=== PATIENT | female | born 1930 ===

== ENCOUNTER 2018-09-22 11:07 | Inpatient (IN) | payer MEDICARE, MEDICAID ==
[2018-09-22 11:10] VITALS: BMI 19.1
--- NOTE | 2018-09-22 12:06 | ED PDOC ---
Arrival/HPI - General Chief Complaint: Altered Mental Status Time Seen by Provider: 09/22/18 11:16 Historian: Retirement - History of Present Illness Narrative History of Present Illness (Text): 09/22/18 12:01 88yo female with pmhx of Dementia, bipolar bib EMS from [facility] for evaluation of AMS. Per NH patient had a mechanical fall on 09/06 and was seen at [facility] s/p and was discharged with negative test. The VT report that patient has been having frequent falls and appear altered since then. Patient in ED is AAO to self. She answers some questions. She denies any focal pain and any other complaint in ED. Past Medical History - Provider Review Nursing Documentation Reviewed: Yes - Infectious Disease Hx of Infectious Diseases: None - Tetanus Immunization Tetanus Immunization: Unknown - Reproductive Menopause: No - Cardiac Hx Cardiac Disorders: Yes Other/Comment: history of AK - Pulmonary Hx Respiratory Disorders: Yes Hx Asthma: Yes Hx Chronic Obstructive Pulmonary Disease (COPD): Yes - Neurological Hx Neurological Disorder: Yes Hx Dementia: Yes Hx Seizures: Yes - HEENT Hx HEENT Disorder: No - Renal Hx Renal Disorder: No - Endocrine/Metabolic Hx Endocrine Disorders: No - Hematological/Oncological Hx Blood Disorders: No - Integumentary Hx Dermatological Disorder: No - Musculoskeletal/Rheumatological Hx Falls: No - Gastrointestinal Hx Gastrointestinal Disorders: No Hx Gastroesophageal Reflux: Yes - Genitourinary/Gynecological Hx Genitourinary Disorders: No - Psychiatric Hx Psychophysiologic Disorder: Yes Hx Anxiety: Yes Hx Bipolar Disorder: Yes Hx Depression: Yes Hx Substance Use: No - Past Surgical History Past Surgical History: Unable to Obtain - Surgical History Hx Tonsillectomy: Yes - Anesthesia Hx Anesthesia: Yes Hx Anesthesia Reactions: No Hx Malignant Hyperthermia: No - Suicidal Assessment Feels Threatened In Home Enviroment: No Family/Social History - Physician Review Nursing Documentation Reviewed: Yes Family/Social History: Unknown Family HX Smoking Status: Never Smoked Hx Alcohol Use: No Hx Substance Use: No Hx Substance Use Treatment: No Allergies/Home Meds Allergies/Adverse Reactions: Allergies No Known Allergies Allergy (Verified 04/22/15 16:35) Home Medications: Home Meds Medication Instructions Recorded Confirmed RX: Atorvastatin [Lipitor] 5 mg PO DAILY 04/22/15 09/22/18 RX: Fluticasone Propionate 1 spray SHELLIE HS 04/22/15 09/22/18 [Flovent Diskus] RX: Fluticasone/Salmeterol 250/50 1 puff INH DAILY 04/22/15 09/22/18 [Advair Diskus 250/50] RX: Loperamide [Imodium] 1 cap PO PRN PRN 04/22/15 09/22/18 RX: Montelukast [Singulair] 1 tab PO DAILY 04/22/15 09/22/18 RX: Pantoprazole [Protonix EC Tab] 1 tab PO DAILY 04/22/15 09/22/18 RX: QUEtiapine [Seroquel] 4 tab PO HS 04/22/15 09/22/18 RX: Roflumilast [Daliresp] 1 tab PO DAILY 04/22/15 09/22/18 RX: LORazepam [Ativan] 0.5 mg PO BID 09/22/18 09/22/18 RX: LORazepam [Ativan] 3 mg PO HS 09/22/18 09/22/18 RX: QUEtiapine [SEROquel] 50 mg PO BID 09/22/18 09/22/18 Review of Systems - Physician Review All systems were reviewed & negative as marked: Yes - Review of Systems Constitutional: Normal Eyes: Normal ENT: Normal Respiratory: Normal Cardiovascular: Normal Gastrointestinal: Normal Genitourinary Female: Normal Musculoskeletal: Normal Skin: Normal Neurological: Other (AMS) Endocrine: Normal Hemo/Lymphatic: Normal Psychiatric: Normal Physical Exam Vital Signs Reviewed: Yes Vital Signs Temp Pulse Resp BP Pulse Ox 09/22/18 11:10 97.7 F 88 20 110/68 99 Temperature: Afebrile Blood Pressure: Normal Pulse: Regular Respiratory Rate: Normal Appearance: Positive for: Well-Appearing, Non-Toxic, Comfortable Pain Distress: None Mental Status: Positive for: Alert and Oriented X 3 - Systems Exam Head: Present: Atraumatic, Normocephalic Pupils: Present: PERRL Extroacular Muscles: Present: EOMI Conjunctiva: Present: Normal Mouth: Present: Moist Mucous Membranes Neck: Present: Normal Range of Motion Respiratory/Chest: Present: Clear to Auscultation, Good Air Exchange. No: Respiratory Distress, Accessory Muscle Use Cardiovascular: Present: Regular Rate and Rhythm, Normal S1, S2. No: Murmurs Abdomen: No: Tenderness, Distention, Peritoneal Signs Back: Present: Normal Inspection Upper Extremity: Present: Normal Inspection. No: Cyanosis, Edema Lower Extremity: Present: Normal Inspection. No: Edema Neurological: Present: GCS=15, CN II-XII Intact, Speech Normal Skin: Present: Warm, Dry, Normal Color. No: Rashes Psychiatric: Present: Alert. No: Oriented x 3 (X 2) Medical Decision Making ED Course and Treatment: 09/22/18 13:58 88yo female bib EMS for AMS and frequent falls. Labs Blood/Urine culture EKG Head CT Chest xray EKG Sinus rhythm with PAC @ 87bpm. LAD Chest - IMPRESSION: No active disease. Head CT IMPRESSION: No acute hemorrhage. Labs nonspecific. elevated CK and LDH noted and pt was hydrated in ED. Pt will however be placed on OBS secondary to the complaint of AMS for further evaluation. Case was DW Dr. Degroot and pt was admitted to his service. He requested Dr. Richards consult. - RAD Interpretation Radiology Orders: 09/22/18 11:19 CHEST PORTABLE [RAD] Stat 09/22/18 11:51 HEAD W/O CONTRAST [CT] Stat Disposition/Present on Arrival - Present on Arrival Any Indicators Present on Arrival: No History of DVT/PE: No History of Uncontrolled Diabetes: No Urinary Catheter: No History of Decub. Ulcer: No History Surgical Site Infection Following: None - Disposition Have Diagnosis and Disposition been Completed?: Yes Diagnosis: Altered mental status Disposition: HOSPITALIZED Disposition Time: 13:50 Patient Plan: Admission Patient Problems: Current Active Problems Problem Status Onset Altered mental status Acute Condition: FAIR
--- NOTE | 2018-09-22 12:15 | RAD ---
Date of service: 09/22/2018 HISTORY: admission COMPARISON: 04/22/2015 FINDINGS: LUNGS: No active pulmonary disease. PLEURA: No significant pleural effusion identified, no pneumothorax apparent. CARDIOVASCULAR: No aortic atherosclerotic calcification present. Normal cardiac size. No pulmonary vascular congestion. OSSEOUS STRUCTURES: There is scoliosis of the lower thoracic spine convex to the right VISUALIZED UPPER ABDOMEN: Normal. OTHER FINDINGS: None. IMPRESSION: No active disease.
[2018-09-22 12:19] LABS: BASO # 0.02 K/mm3 (0.0-2.0); BASO % 0.3 % (0.0-3.0); EOS % 0.7 % (1.5-5.0); GRAN # 3.44 (1.4-6.5); GRAN % 57.1 % (50.0-68.0); HEMOGLOBIN 11.2 g/dL (12.0-16.0); LYMPH # 1.8 (1.2-3.4); LYMPH % 30.1 % (22.0-35.0); MEAN CELL VOLUME 90.2 fl (80.0-105.0); MEAN CORPUSCULAR HEMOGLOBIN 29.8 pg (25.0-35.0); MEAN PLATELET VOLUME 10.4 fl (7.0-11.0); MONO # 0.7 (0.1-0.6); MONO % 11.8 % (1.0-6.0); RBC 3.76 10^6/uL (3.5-6.1); RED CELL DISTRIBUTION WIDTH 13.9 % (11.5-14.5)
[2018-09-22 12:25] LABS: PARTIAL THROMBOPLASTIN TIME 28.9 Seconds (25.1-36.5); PROTHROMBIN TIME 11.5 SECONDS (9.4-12.5)
[2018-09-22 12:27] LABS: ALB/GLOB RATIO 1.1 (1.1-1.8); ALT/SGPT 33 U/L (7-56); AST/SGOT 51 U/L (14-36); BLOOD UREA NITROGEN 21 mg/dL (7-21); CALCIUM 9.4 mg/dL (8.4-10.5); GFR NON-AFRICAN AMERICAN > 60
[2018-09-22 12:29] LABS: PH,URINE 6.5 (4.7-8.0); URINE BILIRUBIN NEGATIVE (NEGATIVE); URINE BLOOD NEGATIVE (NEGATIVE); URINE GLUCOSE (UA) NEGATIVE (NEGATIVE); URINE LEUKOCYTE ESTERASE NEGATIVE Leu/uL (NEGATIVE); URINE PROTEIN NEGATIVE mg/dL (<30 mg/dL); URINE UROBILINOGEN 0.2 E.U./dL (<1 E.U./dL)
[2018-09-22 12:30] LABS: URINE APPEARANCE CLEAR (CLEAR); URINE COLOR LIGHT YELLOW (YELLOW)
[2018-09-22 12:37] LABS: TROPONIN I 0.01 ng/mL
[2018-09-22 12:43] LABS: CK-MB 2.8 ng/mL (0.0-3.6)
--- NOTE | 2018-09-22 13:41 | CT ---
Date of service: 09/22/2018 PROCEDURE: CT HEAD WITHOUT CONTRAST. HISTORY: AMS COMPARISON: None available. TECHNIQUE: Axial computed tomography images were obtained through the head/brain without intravenous contrast. Radiation dose: Total exam DLP = 958.25 mGy-cm. This CT exam was performed using one or more of the following dose reduction techniques: Automated exposure control, adjustment of the mA and/or kV according to patient size, and/or use of iterative reconstruction technique. FINDINGS: HEMORRHAGE: No intracranial hemorrhage. BRAIN: No mass effect or edema. Atrophy. VENTRICLES: Unremarkable. No hydrocephalus. CALVARIUM: Unremarkable. PARANASAL SINUSES: Unremarkable as visualized. No significant inflammatory changes. MASTOID AIR CELLS: Unremarkable as visualized. No inflammatory changes. OTHER FINDINGS: None. IMPRESSION: No acute hemorrhage.
[2018-09-22] MEDS ORDERED: Sodium Chloride 0.9% 1,000 ML IV STA (14:02)
[2018-09-22] MEDS ORDERED: Thiamine 100 mg/ml Inj IM STA (16:06)
--- NOTE | 2018-09-22 17:36 | HP ---
DATE OF EXAM: 09/22/2018 HISTORY OF PRESENT ILLNESS: I know Fabby very well from [facility]. She is in the locked down unit for dementia. She had multiple falls over the past few weeks, I believe that it is seven falls. Thank God, she has not broken anything. She is an 88-year-old white female who has got multiple falls, dementia, bipolar. She went to the [facility] on 09/06/2018 for that fall, discharged with negative tests, another few falls here, and now she is in the [facility]. She has some weight loss. PAST MEDICAL HISTORY: She has a history of an MT, COPD, asthma, dementia, seizures, reflux, bipolar, anxiety. PAST SURGICAL HISTORY: She had a tonsillectomy. FAMILY HISTORY: Unknown family history. SOCIAL HISTORY: Never smoked. No alcohol or drugs. ALLERGIES: NO KNOWN DRUG ALLERGIES. MEDICATIONS: She is on Lipitor, Flovent, also Advair, Imodium, Singulair, Protonix, Seroquel, Daliresp, and Ativan. REVIEW OF SYSTEMS: No acute vision or hearing changes. No sore throat. No chest pain or palpitations. No shortness of breath or cough. No abdominal pain. No nausea, vomiting, constipation, or diarrhea. The skin, what she understands, is okay. She is altered mentally and you got to be specific for her to give you an answer. PHYSICAL EXAMINATION: VITAL SIGNS: She has 97.7 temperature, 88 pulse, 20 respiratory rate, 110/68 blood pressure, 99% O2 sat. GENERAL: She is well appearing, nontoxic, comfortable, alert and oriented x3. HEENT: Head; atraumatic, normocephalic. Extraocular muscles are intact. Pupils are reactive to light and accommodation. Throat is moist. NECK: Supple. HEART: Regular rate. Normal S1, S2. LUNGS: Decreased breath sounds with poor inspiration, but clear to auscultation. No wheeze, no rhonchi, no rales. ABDOMEN: Soft, nontender. Positive bowel sounds. No guarding, no rebound, no CVA tenderness. EXTREMITIES: No edema of the extremities. She could move all four extremities fairly well. NEUROLOGIC: GCS is 15. Cranial nerves II-XII grossly intact. Normal speech. Alert and oriented x1. SKIN: From what I could tell is within normal limits. No breakdown. No rashes or ulcers. LABORATORY DATA: She had multiple tests done here in [facility]. She has an alcohol level of less than 10. The urine is clean. She has sodium 140, potassium 3.7, BUN 21, creatinine 0.7, GFR is greater than 60, sugar is 107. Calcium is 9.4, phosphorus 2.3, magnesium 1.9. Total bili is 0.5, AST is 51, ALT of 33, alkaline phosphatase is 52. Lactate dehydrogenase is 725. Total creatine kinase is 474. Troponin is 0.01. Total protein 7.6, albumin is 4, globulin 2.6. TSH is 0.79. INR is 1. White count is 6, hemoglobin 11.2, hematocrit 32.9, platelets of 296. DIAGNOSTIC DATA: She had a CT scan of the head which showed no acute hemorrhage. Chest x-ray showed no active disease. She is going to need to go to subacute rehab where they will keep her over for three nights and get a subacute rehab. I think she needs that before she goes home. She has fallen seven times and told by [facility]. She is going to need to have physical therapy, neurological evaluation because she has fallen, make sure there is no head trauma, make sure no worsening of her neurological issues. We will put her back on her medications, keep her on IV fluids, get physical therapy to see her, make sure she is eating. She is here for multiple falls. Daryl Degroot DO
--- NOTE | 2018-09-22 17:58 | CON ---
DATE OF CONSULTATION: 09/22/2018 NEUROLOGY CONSULTATION CHIEF COMPLAINT: Change in mental status. HISTORY OF PRESENT ILLNESS: An 88-year-old woman with history of COPD, asthma, bipolar disorder, dementia, and severe cognitive impairment, who came from the detention for mechanical fall, had a mechanical fall on 09/06/2018. Reports that the patient is having frequent falls, deconditioning, having alteration in mental status, A and O x2. She answers some questions, but has very tangential thought processes. Recall after 5 minutes is 0/3. Poor attention span. Slow thought process. Moves all extremities equally. Denies any focal pain. Her labs are unremarkable. Mildly dehydrated, otherwise vital signs are stable. 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 She is deconditioned. PAST MEDICAL HISTORY: As above. SOCIAL HISTORY: No illicit drug use, smoking or EtOH abuse. FAMILY HISTORY: Noncontributory. MEDICATIONS: Reviewed by nurses' reconciliation sheet. REVIEW OF SYSTEMS: A 14-point review of systems is negative except as per the HPI. ALLERGIES: NO KNOWN DRUG ALLERGIES. PHYSICAL EXAMINATION VITAL SIGNS: Temperature of 97.7, pulse rate of 88, blood pressure 121/64, respiratory rate of 18, and oxygen saturation 96% by room air. GENERAL: The patient is sitting up in bed, in no acute distress. HEENT: Atraumatic, normocephalic. PERRLA. Extraocular muscles intact. NECK: Supple. No JVD, no adenopathy noted. LUNGS: Clear to auscultation. No adventitious sounds. HEART: S1, S2. Normal rate and rhythm. No murmurs, rubs, or gallops. ABDOMEN: Soft, nontender, and nondistended. Bowel sounds are present. EXTREMITIES: No clubbing. No cyanosis. Peripheral pulses 2+ felt bilaterally. NEUROLOGIC: The patient is alert and oriented to person, place, month, and year. Recall after 5 minutes is 0/3. Poor attention span. Tangential thought process. Disorganized thinking. Cranial nerves II through XII intact. Speech is hypophonic. No aphasia noted. Motor: Moves all extremities equally. Deconditioned. Cachectic. Slightly increased tone throughout. No pronator drift seen. Sensory Exam: Withdraws to localized noxious stimulus. Light touch, intact. DTRs are 2+ throughout and 1 at both knees and ankles. Coordination and gait is deferred for now. This patient is not quite cooperative. LABORATORY DATA: Sodium is 140, potassium 3.7, chloride 102, carbon dioxide 32, BUN is 21, creatinine 0.7, random glucose of 107. IMPRESSION: Transient confusional state, superimposed underlying cardiac impairment, superimposed underlying bipolar disorder. She is deconditioned and it likely causes her to have mechanical falls as well as she was taking a lot of Ativan at the detention, which could make her drowsy as well. RECOMMENDATION: At this time, I will recommend: 1. Physical Therapy/Occupational Therapy evaluation. 2. B12 injection. 3. Delirium precautions. 4. Psychiatric consult. 5. Continue with current present medical management. Varinder Richards MD
[2018-09-22] MEDS: Sodium Chloride 0.45% 1,000 ML IV SCH (18:01)
[2018-09-22] MEDS: Budesonide 0.5 mg/2 ml Inhal Susp UD IH SCH (19:53)
[2018-09-22] MEDS: Arformoterol 15 mcg/2 ml Inh Sol IH SCH (19:53)
--- NOTE | 2018-09-22 20:28 | CARD ---
APPROVED REPORT Date of service: 09/22/2018 EKG Measurement Heart [id number] <Conclusion> Sinus rhythm with premature atrial complexes Left axis deviation Abnormal ECG
[2018-09-22] MEDS ORDERED: Influenza Vaccine 60 mcg/0.5 mL SYR (4YR UP) IM ONE (22:11)
[2018-09-22] MEDS ORDERED: Pneumococcal 23-Valent Vaccine IM ONE (22:11)
[2018-09-23] MEDS: Arformoterol 15 mcg/2 ml Inh Sol IH SCH ×2 (07:25→20:56)
[2018-09-23] MEDS: Budesonide 0.5 mg/2 ml Inhal Susp UD IH SCH ×2 (07:25→20:56)
[2018-09-23 08:33] LABS: ALB/GLOB RATIO 1.1 (1.1-1.8); ALBUMIN 3.9 g/dL (3.0-4.8); ALT/SGPT 33 U/L (7-56); AST/SGOT 52 U/L (14-36); BLOOD UREA NITROGEN 11 mg/dL (7-21); CALCIUM 8.9 mg/dL (8.4-10.5); GFR NON-AFRICAN AMERICAN > 60
[2018-09-23 08:45] LABS: HEMOGLOBIN 11.2 g/dL (12.0-16.0); MEAN CELL VOLUME 91.4 fl (80.0-105.0); MEAN CORPUSCULAR HGB CONC 32.8 g/dl (31.0-37.0); MEAN PLATELET VOLUME 10.8 fl (7.0-11.0); RBC 3.73 10^6/uL (3.5-6.1); RED CELL DISTRIBUTION WIDTH 14.1 % (11.5-14.5); WHITE BLOOD COUNT 5.5 10^3/uL (4.5-11.0)
[2018-09-23] MEDS ORDERED: Fluticasone-Salmeterol 250-50mcg Diskus INH SCH (10:00)
[2018-09-23] MEDS: Pantoprazole 40 mg EC Tab PO SCH (10:45)
--- NOTE | 2018-09-23 13:37 | PN ---
DATE: 09/23/2018 SUBJECTIVE: I saw her resting comfortably in bed. She is trying to eat. She is alert, very weak and she needs physical therapy. I am waiting for physical therapy to give me direction whether subacute rehab or TCU. MEDICATIONS: She is on IV fluids. She is on Ativan, Brovana, Daliresp, Lipitor, Protonix, Pulmicort, Seroquel and Singulair. PHYSICAL EXAMINATION: GENERAL: She is pleasantly confused. VITAL SIGNS: Temperature 97.7, 81 pulse, 137/78 blood pressure, 18 respiratory rate and 100 percent O2 sat on room air. HEENT: Head is atraumatic, normocephalic. She is looking at me confused, but smiling and having a conversation. HEART: Regular rate. LUNGS: Decreased breath sounds bilaterally but clear. ABDOMEN: Soft, nontender. Positive bowel sounds. EXTREMITIES: No edema. She is quite thin, frail and weak. She had multiple falls in [facility] at [facility], I think up to 7, of which she has not broken anything. LABORATORY DATA: Last labs: White count 5.5, 11.2 hemoglobin, 34.1 hematocrit with 257 platelets. Sodium 140; potassium is 3.1, I am going to replace the potassium with some riders; BUN 11; creatinine 0.6; GFR is greater than 60; sugar is 87; calcium is 8.9. Total bili is 0.2, AST is 52, ALT is 33, alk phos 67, total protein is 7.4. TSH is 0.79. She has a consult with Neurology, is requesting physical therapy for the same and hopefully we can get to a subacute rehab. I think this needs to go before she goes home and hopefully that can be arranged, otherwise, she is an extremely high fall risk with 7 falls in a very short period of time. Daryl Degroot DO MTDD
[2018-09-23] MEDS: Sodium Chloride 0.45% 1,000 ML IV SCH (15:48)
--- NOTE | 2018-09-23 18:43 | CON ---
DATE OF CONSULTATION: 09/23/2018 HISTORY OF PRESENT ILLNESS: The patient is an 88-year-old white female with a psychiatric history of bipolar mixed with psychotic features as well as dementia, anxiety, history of numerous psychiatric hospitalizations, most recently in 01/2015 and had been under Dr. Juarez's care for about 15 to 20 years in the past, prior ECT treatments in her 30s for psychosis and red, who was admitted medically due to history of frequent falls and altered mental status, for which Psychiatry was consulted. I reviewed the recent notes and met with the patient at bedside. Staff notes indicate that she has been restless, agitated, and unpredictable. Orientation is poor; she is only oriented to herself. Difficult for her to follow commands consistently by staff members. I found the patient to be quite disoriented. She is not able to provide much information regarding where she is or current month or year. She could not comprehend questions about mood or hallucinations; however, she was able to provide information regarding remote history and where she is currently living. It is very difficult to fully assess her mental status due to her disorientation and confusion, Her insight and judgement are considered to be poor. Her vitals and labs were reviewed. PSYCHIATRIC MEDICATIONS: Include Ativan 0.5 mg b.i.d. and 3 mg at bedtime, Seroquel 50 mg b.i.d. and 400 mg at bedtime. PSYCHIATRIC HISTORY: The patient has an extensive psychiatric history, dating back to her 30s. Review of [facility] notes indicate that she had numerous psychiatric hospitalizations and 32 ECT treatments in her 30s. She has been admitted for psychosis and red as well as paranoia. The patient was under Dr. Juarez's care for the last 15 to 20 years in the past. Her most recent hospitalization occurred 01/28/2015 to 02/03/2015. Other hospitalizations at [facility] were in 12/2013 and 07/2012. The patient was treated by Dr. Juarez during all of these hospitalizations. The patient also has a history of [facility] hospitalization. SOCIAL HISTORY: The patient has never been . She used to work as a telephone sales representative, however, has been retired for many years. She currently lives at [facility]. IMPRESSION: The patient is likely suffering from delirium (patient demonstrates waxing and waning presentation), although I cannot rule out the contribution of a primary psychiatric disorder manifesting or contributing to her current presentation. The patient has a history of bipolar mixed with psychosis per history as well as anxiety disorder per history. RECOMMENDATIONS: The patient is an 88-year-old female and in general approach is very conservative with her medications; however, she does have a profound psychiatric history and has been tolerating Seroquel at high doses (she was taking such high doses during her prior hospitalizations). I will continue Seroquel 50 b.i.d. and 400 at bedtime at this time. However, although she has tolerated benzos at very high doses in the past, this does not mean that this medication is not contributing to her confusion at this time. I will very slowly decrease her Ativan. It would suprise me if this medication at such a high dose was NOT contributing to baseline confusion and memory issues. In this respect, her Ativan will be decreased to 0.5 mg b.i.d. and 2.5 mg at bedtime with further tapering as tolerated. . Psychiatry will continue to follow up and monitor her behaviors and tolerance to medication changes. Imtiaz Gorman MD MTDAyah
[2018-09-24] MEDS: Budesonide 0.5 mg/2 ml Inhal Susp UD IH SCH ×2 (07:26→20:57)
[2018-09-24] MEDS: Arformoterol 15 mcg/2 ml Inh Sol IH SCH ×2 (07:26→20:57)
[2018-09-24 08:01] LABS: HEMOGLOBIN 10.9 g/dL (12.0-16.0); MEAN CELL VOLUME 89.7 fl (80.0-105.0); MEAN CORPUSCULAR HEMOGLOBIN 29.6 pg (25.0-35.0); MEAN PLATELET VOLUME 10.1 fl (7.0-11.0); RBC 3.68 10^6/uL (3.5-6.1); RED CELL DISTRIBUTION WIDTH 13.9 % (11.5-14.5); WHITE BLOOD COUNT 5.2 10^3/uL (4.5-11.0)
[2018-09-24 08:03] LABS: ALBUMIN 3.3 g/dL (3.0-4.8); ALT/SGPT 27 U/L (7-56); AST/SGOT 36 U/L (14-36); BLOOD UREA NITROGEN 12 mg/dL (7-21); CALCIUM 8.5 mg/dL (8.4-10.5); GFR NON-AFRICAN AMERICAN > 60
[2018-09-24] MEDS: Pantoprazole 40 mg EC Tab PO SCH (09:52)
[2018-09-24] MEDS: Sodium Chloride 0.45% 1,000 ML IV SCH (17:10)
--- NOTE | 2018-09-24 18:09 | PN ---
DATE: 09/24/2018 SUBJECTIVE: I saw her resting comfortably in bed. She slept fairly well. She is pleasantly confused, but she knew me this morning, which was good. I appreciate Psychiatry coming in and changing her medications around and neurological evaluation. She is here because she fell seven times over the past [facility]. She has been getting physical therapy there, they have been watching her there, but I think she needs to have subacute rehab. Physical Therapy saw her and agreed to subacute rehab. I think she will go to [facility] first before she goes back to [facility] and they feel it will be a good idea. Also, I thought she was an inpatient from day 1 on 09/22/2018 when she first got to the hospital. I discussed it with the ER and there was already a note in there to make an admission, but I filled that to change to admission thing today. She needs to have three overnights, so I would like to have that start from the first day she was here and tomorrow be out to be transferred to [facility] for subacute rehab before she goes back [facility]. PHYSICAL EXAMINATION: GENERAL: She is pleasant and she is calm at this time. She is eating some, in no acute distress. VITAL SIGNS: She has a 98.4 temp, 86 pulse, 125/74 blood pressure, 18 respiratory rate, and 96% O2 sat on room air. HEENT: Head is atraumatic, normocephalic. HEART: Regular rate and rhythm. LUNGS: Decreased breath sounds. ABDOMEN: Soft. EXTREMITIES: No edema. MEDICATIONS: She is currently on Ativan, Brovana, Daliresp, Lipitor, Protonix, Pulmicort, Seroquel, Singulair, IV fluids. LABORATORY DATA: She has a white count of 5.2, hemoglobin 10.9, hematocrit 33, and platelets 252. Sodium 138, potassium 3.7, BUN is 12, creatinine 0.6, GFR is greater than 60, sugar is 97, calcium is 8.5. Total bili is 0.5, AST is 36, ALT is 27, alk phos 62, total protein is 6.7. TSH is 6.79. ASSESSMENT AND PLAN: I am hoping that tomorrow Tuesday we can get her to subacute rehab at [facility] before she goes back to [facility], which is a permanent resident, and hopefully back and happy. I appreciate Physical Therapy for recommending this all, I agree with that and Psychiatry for adjusting her medications. She had fallen seven times and she is very marzena she did not break anything. Daryl Degroot DO
[2018-09-25] MEDS: Budesonide 0.5 mg/2 ml Inhal Susp UD IH SCH ×2 (07:15→20:14)
[2018-09-25] MEDS: Arformoterol 15 mcg/2 ml Inh Sol IH SCH ×2 (07:15→20:14)
[2018-09-25 07:54] LABS: HEMOGLOBIN 11.8 g/dL (12.0-16.0); MEAN CELL VOLUME 89.2 fl (80.0-105.0); MEAN CORPUSCULAR HEMOGLOBIN 29.6 pg (25.0-35.0); MEAN CORPUSCULAR HGB CONC 33.1 g/dl (31.0-37.0); RBC 3.99 10^6/uL (3.5-6.1); RED CELL DISTRIBUTION WIDTH 13.8 % (11.5-14.5); WHITE BLOOD COUNT 5.6 10^3/uL (4.5-11.0)
[2018-09-25 08:10] LABS: ALB/GLOB RATIO 1.1 (1.1-1.8); ALBUMIN 3.8 g/dL (3.0-4.8); ALT/SGPT 29 U/L (7-56); AST/SGOT 34 U/L (14-36); BLOOD UREA NITROGEN 12 mg/dL (7-21); GFR NON-AFRICAN AMERICAN > 60
[2018-09-25] MEDS ORDERED: Bupivacaine 0.5% 50 ML IJ ONE (09:27)
[2018-09-25] MEDS: Pantoprazole 40 mg EC Tab PO SCH (10:58)
--- NOTE | 2018-09-25 13:36 | CON ---
DATE: 09/25/2018 HISTORY OF PRESENT ILLNESS: The patient is an 88-year-old female with a psychiatric history of bipolar, mixed with psychotic features, dementia, anxiety, and history of numerous psychiatric hospitalizations, most recently in 01/2015, and under Dr. Juarez's care for about 15-20 years prior to him retiring a month to two months ago, prior ECT treatment in her 30s for psychosis and red who is admitted medically due to history of frequent falls and altered mental status. Psychiatrist has been following up with the patient, and the patient has generally been disoriented on the unit, though not overtly psychotic or delusional. She has been restless, confused, disoriented and needs redirections so she does not climb out of bed which is consistent with delirium and not psychiatric decompensation. It is difficult for her to follow commands consistently by staff members, and her insight and judgment are considered to be poor in this respect. Her vitals and labs were reviewed. PSYCHIATRIC MEDICATIONS: Include Ativan 0.5 mg b.i.d. and 2.5 mg at bedtime, Seroquel 50 mg b.i.d. and 400 mg at bedtime. IMPRESSION: The patient has delirium with notable waxing and waning presentation. Contribution of the decompensation of her primary psychiatric disorder is low on the differential. RECOMMENDATIONS: We will continue to decrease Ativan to 0.5 b.i.d. and 2 mg at bedtime and continue Seroquel at current dose of 50 b.i.d. and 400 at bedtime. Although the patient does have a lot anxiety, and Ativan has been beneficial for her in the past, it would be very surprising if it was not contributing to her baseline confusion and memory issues. Psychiatry will continue to follow up. Imtiaz Gorman MD
[2018-09-25 14:21] VITALS: RESP 18
--- NOTE | 2018-09-25 14:30 | DS ---
HISTORY OF PRESENT ILLNESS: She is resting comfortably in bed. She is alert. She understands the plan I discussed going to [facility] for subacute rehab today. She has fallen 7 times, luckily she did not break anything, very weak with the legs and she needs subacute rehab that was recommended by physical therapy. I am hopeful that she can go to [facility] today before [facility]. MEDICATIONS: She is on Ativan, Brovana, Daliresp, Lipitor, Protonix, Pulmicort, Seroquel and Singulair. PHYSICAL EXAMINATION: VITAL SIGNS: She has a 97.8 temperature, 84 pulse, 123/70 blood pressure, 18 respiratory rate and 96 percent O2 sat on room air. HEENT: Head is atraumatic and normocephalic. HEART: Regular rate. LUNGS: Decreased breath sounds but clear. ABDOMEN: Soft . Positive bowel sounds. EXTREMITIES: No edema. NEUROLOGIC: She is alert and talking to me. LABORATORY DATA: She has a 5.6 white count, 11.8 hemoglobin, 35.6 hematocrit with 287 platelets. She has 138 sodium, potassium is 3.7, BUN is 12, creatinine 0.6, GFR is greater than 60, sugar is 97, calcium is 8.5. Total bili is 0.5, AST is 36, ALT is 27, alk phos 62 and total protein 6.7. I am hoping we could discharge her today to [facility] for subacute rehab before [facility] and get her more stable she does not fall anymore. Daryl Degroot DO MTDD
[2018-09-26] MEDS: Arformoterol 15 mcg/2 ml Inh Sol IH SCH (07:20)
[2018-09-26] MEDS: Budesonide 0.5 mg/2 ml Inhal Susp UD IH SCH (07:20)
--- NOTE | 2018-09-26 09:10 | PN ---
DATE: 09/26/2018 SUBJECTIVE: She is here waiting for a bed at subacute rehab which will take three overnights. I had thought under my intention that the first day that she was here would have counted as an admission, but the ER put her in as an observation, so I changed it to admission. I tried to back date it. I guess I cannot do that to 09/22/2018, so she will be here until tomorrow. PHYSICAL EXAMINATION VITAL SIGNS: She has 98.8 temperature, 100 pulse, 140/80 blood pressure, 18 respiratory rate, 96% O2 saturation. HEENT: Atraumatic and normocephalic. HEART: Regular rate. LUNGS: Clear to auscultation. ABDOMEN: Soft. EXTREMITIES: No edema. The note from the social service director states that I will have to wait until tomorrow before I discharge it to subacute rehab at [facility] where she was accepted and was recommended by Physical Therapy. She has been seen by Psychiatry, Neurology, adjustment in medications by Psychiatry is appreciated. Get out of bed to chair, physical therapy and I guess tomorrow will be the day that she can be discharged to [facility] for subacute rehab before she goes back to [facility] where she is a permanent resident. Daryl Degroot DO
[2018-09-26] MEDS: Pantoprazole 40 mg EC Tab PO SCH (10:10)
[2018-09-26 14:11] VITALS: BP 115/66; PULSE 92; TEMP 98.2; O2SAT 94
--- NOTE | 2018-09-26 20:44 | CON ---
DATE: 09/26/2018 HISTORY OF PRESENT ILLNESS: In short, the patient is an 88-year-old female with psychiatric history of bipolar disorder, mixed, with psychotic seen features as well as dementia, anxiety, history of multiple psychiatric hospitalizations, most recently was in [address] Juarez's service, history of ECT treatment in her 30s for psychosis and red. The patient was admitted on the medical site status post fall and altered mental status. Psych consult was called for evaluation of altered mental status, and the patient has history of mental illness. The patient was initially seen by Dr. Gorman yesterday. Notes reviewed. The patient was seen and examined today. There is no option to have meaningful conversation. The patient is disoriented. The patient is making statements, which are not related to the questions asked. PHYSICAL EXAMINATION: VITAL SIGNS: Seemed to be stable. MEDICATIONS: Medications reviewed. The patient was on Brovana, Lipitor, Pulmicort, Ativan, Singulair, Protonix, Seroquel 50 mg twice a day, and Seroquel 400 mg at the nighttime. LABORATORY DATA: Labs reviewed. Hemoglobin and hematocrit are 11.8 and 35.6. Chemistry reviewed. Urinalysis reviewed. Toxicology reviewed. MENTAL STATUS EXAMINATION: As this insurance underwriter sales described above, the patient is disoriented, angry, nguyen, and irritable. The patient was not able to describe her mood. Thought process disorganized. Thought content, the patient is obviously psychotic and disorganized, responding to internal stimuli. Insight and judgment seemed to be severely impaired. Impulses are unpredictable, but the patient does not have any agitation or aggression, was in good behavioral control. IMPRESSION: History of mental illness; bipolar disorder versus schizoaffective disorder, bipolar type; altered mental status, which is related to the multiple medical issues, as well as history of dementia. PLAN: As per medical team, the patient will be transferred to subacute rehab. This insurance underwriter sales recommended to continue all of her psychotropic medications. The patient needs to be seen by psychiatrist within 24 to 48 hours. Continue Seroquel. Continue current meds. This insurance underwriter sales will sign off. Should you have any questions, give me a call back. Leigha Rivera MD [facility] # [phone]
--- NOTE | 2018-09-27 08:51 | PQF ---
PROVIDER RESPONSE TEXT: Provider was unable to determine a response for this query. REVIEWER QUERY TEXT: Altered Mental Status - Underlying Cause A mental status change is documented in the Medical Record. Please specify the underlying cause Such as: -- Due to medication -- Cardiac condition -- Electrolyte/metabolic imbalance -- Infectious process -- Neurologic condition -- Psychiatric condition -- Respiratory condition -- Other, please specify The patient's Clinical Indicators include: As per ER documentation of altered mental status please specify underlying cause. There is no final d iagnosis that reflect in your discharge summary. Please provide us a final diagnosis. Query created by: Carey Leone on 09/27/2018 6:38 AM Electronically signed by: Daryl Degroot DO 09/27/2018 8:47 AM
== END 2018-09-26 16:05 | DRG 948 ==
LOC: ED 11:07 → ERH 13:50 → OBSVTOIN 13:50 → ERH 15:17 → 5RSO 16:20 → INTOOBSV 09-24 11:23 → OBSVTOIN 09-24 11:23
PROVIDERS: ADMIT Family Medicine; ATTEND Family Medicine
DX: R41.82 Altered mental status, unspecified (principal); F31.64 Bipolar disorder, current episode mixed, severe, with psychotic features; F03.90 Unspecified dementia, unspecified severity, without behavioral disturbance, psychotic disturbance, mood disturbance, and anxiety; E86.0 Dehydration; R29.6 Repeated falls; F41.9 Anxiety disorder, unspecified; R41.89 Other symptoms and signs involving cognitive functions and awareness; J44.9 Chronic obstructive pulmonary disease, unspecified; K21.9 Gastro-esophageal reflux disease without esophagitis; I25.2 Old myocardial infarction; Z91.81 History of falling; Z79.899 Other long term (current) drug therapy

== ENCOUNTER 2018-10-02 12:19 | Inpatient (IN) | payer MEDICARE, MEDICAID ==
[2018-10-02 13:13] LABS: BASO # 0.02 K/mm3 (0.0-2.0); BASO % 0.4 % (0.0-3.0); EOS % 0.5 % (1.5-5.0); GRAN # 3.28 (1.4-6.5); GRAN % 58.1 % (50.0-68.0); LYMPH # 1.6 (1.2-3.4); LYMPH % 27.5 % (22.0-35.0); MEAN CELL VOLUME 89.7 fl (80.0-105.0); MEAN CORPUSCULAR HEMOGLOBIN 29.7 pg (25.0-35.0); MEAN CORPUSCULAR HGB CONC 33.1 g/dl (31.0-37.0); MEAN PLATELET VOLUME 10.4 fl (7.0-11.0); MONO # 0.8 (0.1-0.6); MONO % 13.5 % (1.0-6.0); RBC 3.7 10^6/uL (3.5-6.1); WHITE BLOOD COUNT 5.6 10^3/uL (4.5-11.0)
--- NOTE | 2018-10-02 13:23 | ED PDOC ---
Arrival/HPI - General Chief Complaint: Trauma Time Seen by Provider: 10/02/18 12:24 Historian: Patient - History of Present Illness Narrative History of Present Illness (Text): 10/02/18 13:19 88 female presents from group home for unwitnessed fall. As per medic report, patient was using walker in bathroom, tripped and hit head on the way to the ground. Patient relayed to medics that she has a frontal and occipital headache. It is unclear of there was a loss of consciousness. Patient arrived in the Emergency department awake and alert, is hard of hearing, appears to have good insight into events. Patient denies any chest pain, no abdominal pain, patient only reports having bilateral upper arm pain. PMD: Dr. Swain Past Medical History - Provider Review Nursing Documentation Reviewed: Yes - Infectious Disease Hx of Infectious Diseases: None - Tetanus Immunization Tetanus Immunization: Unknown - Reproductive Menopause: Yes - Cardiac Hx Cardiac Disorders: Yes - Pulmonary Hx Chronic Obstructive Pulmonary Disease (COPD): Yes - Neurological Hx Neurological Disorder: Yes Hx Dementia: Yes Hx Seizures: Yes - HEENT Hx HEENT Disorder: Yes (seminole/glasses) - Renal Hx Renal Disorder: No - Endocrine/Metabolic Hx Endocrine Disorders: No - Hematological/Oncological Hx Blood Disorders: No - Integumentary Hx Dermatological Disorder: No - Musculoskeletal/Rheumatological Hx Arthritis: Yes - Gastrointestinal Hx Gastrointestinal Disorders: Yes Hx Gastroesophageal Reflux: Yes - Genitourinary/Gynecological Hx Genitourinary Disorders: Yes Hx Incontinence: Yes - Psychiatric Hx Psychophysiologic Disorder: Yes Hx Anxiety: Yes Hx Bipolar Disorder: Yes Hx Depression: Yes Hx Substance Use: No - Past Surgical History Past Surgical History: Unable to Obtain - Surgical History Hx Tonsillectomy: Yes - Anesthesia Hx Anesthesia: Yes Hx Anesthesia Reactions: No Hx Malignant Hyperthermia: No - Suicidal Assessment Feels Threatened In Home Enviroment: No Family/Social History - Physician Review Nursing Documentation Reviewed: Yes Family/Social History: No Known Family HX Smoking Status: Never Smoked Hx Alcohol Use: No Hx Substance Use: No Hx Substance Use Treatment: No Allergies/Home Meds Allergies/Adverse Reactions: Allergies No Known Allergies Allergy (Verified 10/02/18 12:59) Home Medications: Home Meds Medication Instructions Recorded Confirmed Atorvastatin [Lipitor] 10 mg PO DAILY 04/22/15 10/02/18 Fluticasone Propionate [Flovent 1 spray SHELLIE HS 04/22/15 10/02/18 Diskus] Fluticasone/Salmeterol 250/50 1 puff INH DAILY 04/22/15 10/02/18 [Advair Diskus 250/50] Loperamide [Imodium] 1 cap PO PRN PRN 04/22/15 10/02/18 Montelukast [Singulair] 1 tab PO DAILY 04/22/15 10/02/18 Pantoprazole [Protonix EC Tab] 1 tab PO DAILY 04/22/15 10/02/18 QUEtiapine [Seroquel] 4 tab PO HS 04/22/15 10/02/18 Roflumilast [Daliresp] 1 tab PO DAILY 04/22/15 10/02/18 LORazepam [Ativan] 0.5 mg PO BID 09/22/18 10/02/18 LORazepam [Ativan] 2 mg PO HS 09/22/18 10/02/18 QUEtiapine [SEROquel] 50 mg PO BID 09/22/18 10/02/18 Review of Systems - Physician Review All systems were reviewed & negative as marked: Yes - Review of Systems Cardiovascular: absent: Chest Pain Gastrointestinal: absent: Abdominal Pain Musculoskeletal: Other (bilaterall upper arm pain) Neurological: Headache Physical Exam - Physical Exam Narrative Physical Exam (Text): 10/02/18 13:23 Gen: VS reviewed, alert, frail, well nourished, nontoxic, mild distress Eye: EOMI, PERRL Neck: no JVD, supple, no adenopathy, questionable midline cervical spine tenderness-cervical collar to be placed for protection pending CT CV: regular rate, regular rhythm, no rubs,no murmur, S1, S2 Pulm: no distress, clear to auscultation, no wheeze, no rhonchi, breath sounds equal, no rales Abd: soft, nontender, no guarding, no rebound, no rigidity Ext: no edema, diffuse tenderness to the bilateral upper extremities without bruising Skin: good color, no rash, no cyanosis Psych: responds appropriately to questions, normal affect Neuro: oriented x3, CN2-12 intact grossly, motor intact, sensation intact Vital Signs Temp Pulse Resp BP Pulse Ox 10/02/18 12:52 98.3 F 85 15 109/59 L 98 Medical Decision Making ED Course and Treatment: 10/02/18 13:30 Impression: 88 year old female brought in for unwitnessed fall. Plan: -- EKG -- Head CT -- Cervical Spinal CT -- Chest X-ray -- Left Humerus X-Ray -- Right Humerus X-Ray -- Left Shoulder X-Ray -- Right Shoulder X-Ray -- Urinalysis -- Urine Culture -- Reassess and disposition Progress Notes: 10/02/18 15:[address] swain. patient to be admitted for multiple falls, ambulatory dysfunction, severe fall risk despite walker assistance. patient will require PT and is a candidate for rehab. - Lab Interpretations Lab Results: 10/02/18 13:00 Lab Results 10/02/18 13:00: WBC 5.6, RBC 3.70, Hgb 11.0 L, Hct 33.2 L, MCV 89.7, MCH 29.7, MCHC 33.1, RDW 14.0, Plt Count 315, MPV 10.4, Gran % 58.1, Lymph % (Auto) 27.5, Josephine % (Auto) 13.5 H, Eos % (Auto) 0.5 L, Baso % (Auto) 0.4, Gran # 3.28, Lymph # (Auto) 1.6, Josephine # (Auto) 0.8 H, Eos # (Auto) 0.0, Baso # (Auto) 0.02 - RAD Interpretation Narrative RAD Interpretations (Text): 10/02/2018 13:[address] IMPRESSION: No evidence of acute intracranial mass effect or midline shift. Dictator: Pepper Castillo MD 10/02/2018 13:[address] IMPRESSION: No evidence of acute displaced fracture or subluxation. Spondylosis and dengenerative changes more prominent at C5-C6. Dictator: Pepper Castillo MD 10/02/18 15:41 cxr my read: no focal infiltrate, no ptx, no wide mediastinum; hip xray with pelvis my read: no fx or dislocation; shoulder xray right and left: no fx of dislocation Radiology Orders: 10/02/18 12:37 CHEST PORTABLE [RAD] Stat 10/02/18 12:38 CERVICAL SPINE W/O CONTRAST [CT] Stat HEAD W/O CONTRAST [CT] Stat 10/02/18 12:39 SHOULDER LEFT [RAD] Stat SHOULDER RIGHT [RAD] Stat 10/02/18 12:40 HUMERUS LT FALL PROTOCOL [RAD] Stat HUMERUS RT FALL PROTOCOL [RAD] Stat Hip Bi with Pelvis Fall Protocol [HIP MIN 2V W/ PELVIS LUIS] [RAD] Stat - EKG Interpretation EKG Interpretation (Text): 10/02/18 15:34 1500: nsr at 76 bpm, nml qrs, no ectopy, no acute sttw abn Interpreted by ED Physician: Yes Disposition/Present on Arrival - Present on Arrival Any Indicators Present on Arrival: No History of DVT/PE: No History of Uncontrolled Diabetes: No Urinary Catheter: No History of Decub. Ulcer: No History Surgical Site Infection Following: None - Disposition Have Diagnosis and Disposition been Completed?: Yes Diagnosis: Head injury, Fall, Ambulatory dysfunction Disposition: HOSPITALIZED Disposition Time: 15:30 Patient Plan: Admission Patient Problems: Current Active Problems Problem Status Onset Ambulatory dysfunction Acute Fall Acute Head injury Acute Condition: STABLE Referrals: Daryl Swain DO [Primary Care Provider] - Follow up with primary Forms: [employer] ([employer])
[2018-10-02 13:24] LABS: ALBUMIN 3.7 g/dL (3.0-4.8); ALT/SGPT 25 U/L (7-56); AST/SGOT 30 U/L (14-36); BLOOD UREA NITROGEN 18 mg/dL (7-21); CALCIUM 9.2 mg/dL (8.4-10.5); GFR NON-AFRICAN AMERICAN > 60
--- NOTE | 2018-10-02 13:48 | CT ---
Date of service: 10/02/2018 PROCEDURE: CT HEAD WITHOUT CONTRAST. HISTORY: trauma COMPARISON: Comparison is made with 09/22/2018 TECHNIQUE: Axial computed tomography images were obtained through the head/brain without intravenous contrast. Radiation dose: Total exam DLP = 726.77 mGy-cm. This CT exam was performed using one or more of the following dose reduction techniques: Automated exposure control, adjustment of the mA and/or kV according to patient size, and/or use of iterative reconstruction technique. FINDINGS: HEMORRHAGE: No intracranial hemorrhage. BRAIN: No mass effect or edema. [id number] volume loss and chronic microvascular white matter ischemia changes are again noted. VENTRICLES: Unremarkable. No hydrocephalus. CALVARIUM: Unremarkable. PARANASAL SINUSES: Unremarkable as visualized. No significant inflammatory changes. MASTOID AIR CELLS: Unremarkable as visualized. No inflammatory changes. OTHER FINDINGS: None. IMPRESSION: No evidence of acute intracranial hemorrhage mass effect or midline shift.
--- NOTE | 2018-10-02 13:51 | CT ---
Date of service: 10/02/2018 PROCEDURE: CT Cervical Spine without contrast HISTORY: trauma COMPARISON: None available. TECHNIQUE: Axial computed tomography images were obtained of the cervical spine without the use of intravenous contrast. Coronal and sagittal reformatted images were created and reviewed. Radiation dose: Total exam DLP = 201.25 mGy-cm. This CT exam was performed using one or more of the following dose reduction techniques: Automated exposure control, adjustment of the mA and/or kV according to patient size, and/or use of iterative reconstruction technique. FINDINGS: VERTEBRAE: No fracture. Normal alignment. No destructive bony lesion. DISCS/SPINAL CANAL/NEURAL FORAMINA: There is posterior osteophyte bulging disc at C5-C6 associated with mild spinal and neural foraminal narrowing. Moderate disc space narrowing is also noted at C5-C6. PARASPINAL SOFT TISSUES: Unremarkable. OTHER FINDINGS: None. IMPRESSION: No evidence of acute displaced fracture or subluxation. Spondylosis and degenerative changes more prominent at C5-C6.
[2018-10-02 15:24] LABS: PH,URINE 6.5 (4.7-8.0); URINE BILIRUBIN NEGATIVE (NEGATIVE); URINE BLOOD NEGATIVE (NEGATIVE); URINE GLUCOSE (UA) NEGATIVE (NEGATIVE); URINE LEUKOCYTE ESTERASE NEGATIVE Leu/uL (NEGATIVE); URINE PROTEIN NEGATIVE mg/dL (<30 mg/dL); URINE UROBILINOGEN 0.2 E.U./dL (<1 E.U./dL)
[2018-10-02 15:28] LABS: URINE APPEARANCE CLEAR (CLEAR); URINE COLOR YELLOW (YELLOW)
--- NOTE | 2018-10-02 15:39 | RAD ---
Date of service: 10/02/2018 PROCEDURE: CHEST RADIOGRAPH, 1 VIEW HISTORY: trauma COMPARISON: Comparison is made with 09/22/2018 FINDINGS: LUNGS: No evidence of new infiltrate or consolidation in the lungs. PLEURA: No pneumothorax or pleural fluid seen. CARDIOVASCULAR: No aortic atherosclerotic calcification present. Normal. OSSEOUS STRUCTURES: No significant abnormalities. VISUALIZED UPPER ABDOMEN: Normal. OTHER FINDINGS: None. IMPRESSION: No active disease.
--- NOTE | 2018-10-02 15:42 | RAD ---
Date of service: 10/02/2018 PROCEDURE: Radiographs of the Left Shoulder HISTORY: trauma COMPARISON: No prior. FINDINGS: BONES: No evidence of acute fracture or dislocation. JOINTS: Moderate osteoarthritic changes noted. SOFT TISSUES: Normal. OTHER FINDINGS: None. IMPRESSION: No evidence of acute fracture or dislocation
--- NOTE | 2018-10-02 17:03 | RAD ---
PROCEDURE: Radiographs of the right humerus. HISTORY: trauma COMPARISON: None. FINDINGS: BONES: Normal. No fracture or focal lesion. SOFT TISSUES: Normal. OTHER FINDINGS: None. IMPRESSION: Unremarkable radiographs of right humerus.
--- NOTE | 2018-10-02 17:04 | RAD ---
PROCEDURE: Radiographs of the left humerus. HISTORY: trauma COMPARISON: None. FINDINGS: BONES: Normal. No fracture or focal lesion. SOFT TISSUES: Normal. OTHER FINDINGS: Degenerative changes left shoulder IMPRESSION: No acute findings related to/ accounting for the clinical presentation.
--- NOTE | 2018-10-02 17:07 | RAD ---
Date of service: 10/02/2018 PROCEDURE: Radiographs of the Right Shoulder HISTORY: trauma COMPARISON: No prior. FINDINGS: BONES: No visible fracture. JOINTS: Preserved glenohumeral relationship, acromioclavicular degenerative change: Mild. SOFT TISSUES: Normal. OTHER FINDINGS: None. IMPRESSION: No acute findings related to/ accounting for the clinical presentation.
--- NOTE | 2018-10-02 17:07 | RAD ---
PROCEDURE: Radiographs of the pelvis and bilateral hips HISTORY: fall COMPARISON: None. FINDINGS: BONES: Pelvis: Unremarkable. Right hip:Unremarkable. Left hip:Unremarkable. JOINTS: Right hip: Unremarkable. Left hip: Unremarkable. Sacroiliac Joints: Unremarkable. Pubic symphysis: Unremarkable. SOFT TISSUES: Normal. OTHER FINDINGS: None. IMPRESSION: Unremarkable radiographs of the hips and pelvis.
--- NOTE | 2018-10-02 19:36 | CARD ---
APPROVED REPORT Date of service: 10/02/2018 EKG Measurement Heart [id number] MD [id number] <Conclusion> Normal sinus rhythm Left axis deviation Left anterior fascicular block Abnormal ECG
[2018-10-02] MEDS: Fluticasone Nasal 50 mcg/Spray NAS SCH (21:27)
--- NOTE | 2018-10-02 21:39 | HP ---
DATE OF EXAM: 10/02/2018 HISTORY OF PRESENT ILLNESS: I know very well from [facility]. She was recently in the hospital with a fall. She has had multiple falls 8 falls in less than 5 weeks, I am trying to get a subacute rehab, the last time she was in the hospital did not work out for some reason. At this time, she fell in the bathroom with a walker, tripped, and hit her head, possible loss of conscious. She has frontal occipital headache. She is very hard of hearing. She is very weak and needs physical therapy. On my goal to get a subacute rehab at [facility], she is being admitted as an inpatient. She is being admitted as an inpatient. PAST MEDICAL HISTORY: She has a history of dementia, seizures, COPD, and hard of hearing. She wears glasses. She has arthritis, gastroesophageal reflux, incontinence of urine, anxiety, bipolar, and depression. No substance abuse. PAST SURGICAL HISTORY: Not sure about surgery. She had a tonsillectomy. FAMILY HISTORY: Unknown family history. SOCIAL HISTORY: No smoking. No drinking. No drugs. ALLERGIES: NO KNOWN DRUG ALLERGIES. MEDICATIONS: She is on Lipitor for high cholesterol, Flovent Diskus for asthma and respiratory disease, Advair, Imodium for diarrhea, Singulair for her lungs, Protonix for GERD, Seroquel and Ativan for anxiety and bipolar, Daliresp for her lungs, and Seroquel b.i.d. for her psychological disorders. REVIEW OF SYSTEMS: She has no acute vision or hearing loss. She has a frontal headache and a back headache. She has a bruise in the left forehead where she hit her head. She has no sore throat. No neck pain. No chest pain or palpitations. No shortness of breath or cough. No abdominal pain, nausea, vomiting, constipation, or diarrhea. She can move all 4 extremities, although bilateral upper extremity pain is sore. She has a headache. PHYSICAL EXAMINATION: VITAL SIGNS: She has a 98.3 temperature, 85 pulse, 15 respiratory rate, 109/59 blood pressure, and 90% O2 sat. GENERAL: She is alert, well-nourished, nontoxic, and little bit distressed. HEENT: She has a head bruise on the left forehead. Extraocular muscles are intact. Pupils are active to light. Throat is moist. NECK: Supple. No JVD. Questionable midline cervical spine tenderness. HEART: Regular rate. Normal S1 and S2. LUNGS: Decreased breath sounds, but clear to auscultation. No wheezes. No rhonchi. No rales. ABDOMEN: Soft and nontender. No guarding. No rebound. No CVA tenderness. EXTREMITIES: Have no edema. Bilateral upper extremity weakness. She has bruises on both of her knees. SKIN: Otherwise, skin is intact. NEUROLOGIC: She responds appropriately. Fair affect. Alert and oriented x3. Cranial nerves II through XII grossly intact. She is presently strange. She has weak lower extremities. She has very much of problem walking more than 2 to 3 steps. She needs physical therapy. We tried to do that the last time she was here, I could not get her to [facility], she went back to [facility] for physical therapy that did not do enough. She needs to have physical therapy at [facility]. She had multiple x-rays and CAT scan, x-ray of the humerus were fine, hip and pelvis were fine, and shoulder x-rays were fine. Head CT was fine. Cervical spine x-ray was fine. Chest x-ray was fine. She has bruises and discomfort in all those areas. She has a urine, which is clean. LABORATORY DATA: Sodium 140, potassium 3.8, BUN 18, creatinine 0.7, GFR is greater than 60, sugar is 108, calcium is 9.2, and total bili is 0.2. AST is 30, ALT is 25, alk phos 68, and creatinine kinase is 126. Total protein 7.2 and albumin 3.7. White count 5.6, hemoglobin 11, hematocrit 33.2, and platelets 315. ASSESSMENT AND PLAN: She will be seen by Neurology. She has got physical therapy, this has to be an inpatient admission. I discussed with the ER doctor at length to have physical therapy, neurologist, diet meds, hopefully will get subacute rehab at [facility]. Thank you very much. Daryl Degroot DO MTDAyah
[2018-10-03 06:12] LABS: HEMOGLOBIN 10.7 g/dL (12.0-16.0); MEAN CELL VOLUME 90.5 fl (80.0-105.0); MEAN CORPUSCULAR HEMOGLOBIN 29.1 pg (25.0-35.0); MEAN CORPUSCULAR HGB CONC 32.1 g/dl (31.0-37.0); MEAN PLATELET VOLUME 10.1 fl (7.0-11.0); RBC 3.68 10^6/uL (3.5-6.1); RED CELL DISTRIBUTION WIDTH 14.2 % (11.5-14.5)
[2018-10-03 06:41] LABS: ALBUMIN 3.6 g/dL (3.0-4.8); ALT/SGPT 22 U/L (7-56); AST/SGOT 27 U/L (14-36); BLOOD UREA NITROGEN 17 mg/dL (7-21); GFR NON-AFRICAN AMERICAN > 60
[2018-10-03] MEDS: Budesonide 0.5 mg/2 ml Inhal Susp UD IH SCH ×2 (08:04→20:22)
[2018-10-03] MEDS: Arformoterol 15 mcg/2 ml Inh Sol IH SCH ×2 (08:04→20:22)
[2018-10-03] MEDS: Pantoprazole 40 mg EC Tab PO SCH (09:55)
[2018-10-03] MEDS ORDERED: Fluticasone-Salmeterol 250-50mcg Diskus INH SCH (10:00)
--- NOTE | 2018-10-03 11:39 | PN ---
DATE: 10/03/2018 SUBJECTIVE: I saw her this morning resting in bed. Her bumps and bruises are little bit better today from a fall which is the 8th fall in about 5 weeks. She is comfortable in bed. She is hungry. She understands I believe that she is going to go to subacute rehab. She is on Ativan, Brovana, Daliresp, Flonase, Imodium, Lipitor, Protonix, Pulmicort, Seroquel and Singulair. PHYSICAL EXAMINATION: VITAL SIGNS: She has a 97.2 temperature, 87 pulse, 112/65 blood pressure, 20 respiratory rate and 96% O2 sat on room air. HEENT: Head is atraumatic and normocephalic. HEART: Regular rate. LUNGS: Clear to auscultation. ABDOMEN: Soft. EXTREMITIES: No edema. LABORATORY DATA: She has a 4 white count, 10.7 hemoglobin, 33.2 hematocrit with 277 platelets. Sodium 139, potassium 3.9, BUN 70, creatinine 0.7, GFR is greater than 60, sugar is 86, calcium is 9, total bili is 0.3, AST is 27, ALT is 22, alk phos 73 and total protein is 7. Urine is clean. All the x-rays and CAT scans were okay. She had multiple bruises and complaints of headaches and arm pains and she needs to have physical therapy when we get her to subacute rehab at [facility] and hopefully we will get there in the next two more overnights. Fabby Montejo, who had multiple falls in her past with multiple contusions and bruises. Drayl Degroot DO
--- NOTE | 2018-10-03 17:15 | CON ---
DATE: 10/03/2018 HISTORY OF PRESENT ILLNESS: This is an 88-year-old female from [facility] and she had multiple falls. The patient fell in the bathroom with a walker, tripped and hit her head, possible loss of consciousness, and she is hard of hearing. PAST MEDICAL HISTORY: Dementia, seizure, COPD, hard of hearing, arthritis, incontinence of urine, anxiety, depression. SOCIAL HISTORY: Does not smoke, does not drink. ALLERGIES: NO KNOWN DRUG ALLERGY. MEDICATIONS: On Lipitor, Flovent, Singulair, Protein X, Seroquel and Ativan. REVIEW OF SYSTEMS: A 10-point review of system was negative. PHYSICAL EXAMINATION: HEENT: Normocephalic, atraumatic. NECK: Supple. NEUROLOGIC: Awake, oriented to self. Cranial nerves II through XII were tested. Pupils reactive. Spontaneous movement of extremities noted. Deep tendon reflexes 1+. Both plantars are downgoing. Sensory appears intact. Cerebellar gait deferred. CAT scan of the head, no bleed. CAT scan of the cervical spine and x-rays of the humerus and hip and pelvis were fine. IMPRESSION: The patient tripped and fell, multiple falls, multiple medical problems, dementia, seizure, chronic obstructive pulmonary disease, and all the x-rays and CAT scan were negative. Continue present management, need physical therapy to strengthen her. Ugo Richards MD
[2018-10-03] MEDS: Fluticasone Nasal 50 mcg/Spray NAS SCH (22:17)
[2018-10-04 06:54] LABS: MEAN CELL VOLUME 89.6 fl (80.0-105.0); MEAN CORPUSCULAR HEMOGLOBIN 28.5 pg (25.0-35.0); MEAN CORPUSCULAR HGB CONC 31.8 g/dl (31.0-37.0); MEAN PLATELET VOLUME 10.2 fl (7.0-11.0); RBC 3.86 10^6/uL (3.5-6.1); RED CELL DISTRIBUTION WIDTH 14.1 % (11.5-14.5); WHITE BLOOD COUNT 4.8 10^3/uL (4.5-11.0)
[2018-10-04 07:22] LABS: ALBUMIN 3.6 g/dL (3.0-4.8); ALT/SGPT 31 U/L (7-56); AST/SGOT 33 U/L (14-36); BLOOD UREA NITROGEN 15 mg/dL (7-21); CALCIUM 8.9 mg/dL (8.4-10.5); GFR NON-AFRICAN AMERICAN > 60
[2018-10-04] MEDS: Arformoterol 15 mcg/2 ml Inh Sol IH SCH ×2 (08:09→20:25)
[2018-10-04] MEDS: Budesonide 0.5 mg/2 ml Inhal Susp UD IH SCH ×2 (08:09→20:25)
[2018-10-04] MEDS: Pantoprazole 40 mg EC Tab PO SCH (10:22)
--- NOTE | 2018-10-04 12:32 | PN ---
DATE: 10/04/2018 SUBJECTIVE: She is here for multiple falls. The plan is to go to subacute rehab. I am sure that tomorrow will be finishing her third overnight and we can discharge her to subacute rehab at [facility]. She definitely needs it, has recommendation from Physical Therapy. She is out of bed to chair. She continued to eat well. MEDICATIONS: She is on Ativan, Brovana, Flonase, Imodium, Lipitor, Protonix, Pulmicort, Seroquel, and Singulair. PHYSICAL EXAMINATION: VITAL SIGNS: She has a 98 temperature, 88 pulse, 125/74 blood pressure, 20 respiratory rate, 96% on room air. HEAD: Atraumatic, normocephalic. HEART: Regular rate. LUNGS: Clear to auscultation. ABDOMEN: Soft, nontender. Positive bowel sounds. EXTREMITIES: No edema. She is quite weak. LABORATORY DATA: She has a 4.8 white count, 11 hemoglobin, 34.6 hematocrit, 288 platelets. Sodium 139, potassium 3.9, BUN 15, creatinine 0.6, GFR is greater than 60, sugar is 87, calcium is 8.9, total bili is 0.3. AST is 33, ALT is 31, alk phos 73, total protein 7.3. ASSESSMENT AND PLAN: She has been seen by Neurology, he recommends physical therapy at subacute rehab. The plan will be tomorrow to go to subacute rehab at [facility] for three weeks with Physical Therapy before she goes back to the for multiple falls. Daryl Degroot DO MTDD
--- NOTE | 2018-10-04 13:13 | CP.PCM.APN ---
Subjective - Date & Time of Evaluation Date of Evaluation: 10/04/18 Time of Evaluation: 09:30 - Subjective Subjective: 88 female presents from residential for unwitnessed fall. As per medic report, patient was using walker in bathroom, tripped and hit head on the way to the ground. Patient relayed to medics that she has a frontal and occipital headache. It is unclear of there was a loss of consciousness. Pt. seen and examined. Resting comfortabley in bed, is pleasantly confused.States feels "lousy", c/o left foot discomfort, thought is able to have normal straight leg raise, and ROM to left foot. Review of Systems - Review of Systems Systems not reviewed;Unavailable: Dementia, Altered Mental Status - Neurological Neurological: Confusion, Memory Loss Objective - Vital Signs/Intake and Output Vital Signs (last 24 hours): Temp Pulse Resp BP Pulse Ox 98 F 88 20 125/74 96 10/04/18 08:29 10/04/18 08:29 10/04/18 08:29 10/04/18 08:29 10/04/18 08:29 Intake and Output: 10/04/18 10/04/18 06:59 18:59 Output Total 750 Balance -750 - Medications Medications: Current Medications Arformoterol Tartrate (Brovana) 15 mcg IH [id number] [facility] Last Admin: 10/04/18 08:09 Dose: 15 mcg Atorvastatin Calcium (Lipitor) 10 mg PO DAILY [facility] Last Admin: 10/04/18 10:21 Dose: 10 mg Budesonide (Pulmicort Respules) 0.5 mg IH [id number] [facility] Last Admin: 10/04/18 08:09 Dose: 0.5 mg Fluticasone Propionate (Flonase) 1 actuation [facility] Last Admin: 10/03/18 22:17 Dose: 1 spr Loperamide HCl (Imodium) 2 mg PO BID PRN PRN Reason: Diarrhea Lorazepam (Ativan) 0.5 mg PO BID [facility]; Protocol Last Admin: 10/04/18 10:22 Dose: 0.5 mg Lorazepam (Ativan) 2 mg PO HS [facility]; Protocol Last Admin: 10/03/18 22:16 Dose: 2 mg Montelukast Sodium (Singulair) 10 mg PO DAILY [facility] Last Admin: 10/04/18 10:21 Dose: 10 mg Pantoprazole Sodium (Protonix Ec Tab) 40 mg PO DAILY [facility] Last Admin: 10/04/18 10:22 Dose: 40 mg Quetiapine Fumarate (Seroquel) 50 mg PO BID [facility] Last Admin: 10/04/18 10:21 Dose: 50 mg Quetiapine Fumarate (Seroquel) 400 mg PO HS [facility]; Protocol Last Admin: 10/03/18 22:15 Dose: 400 mg Roflumilast (Daliresp) 500 mcg PO DAILY [facility] Last Admin: 10/04/18 10:21 Dose: 500 mcg - Labs Labs: 10/04/18 05:45 10/04/18 05:45 - Head Exam Head Exam: NORMAL INSPECTION - Eye Exam Eye Exam: PERRL Pupil Exam: NORMAL ACCOMODATION - ENT Exam ENT Exam: Normal Exam - Neck Exam Neck Exam: Full ROM - Respiratory Exam Respiratory Exam: Clear to Ausculation Bilateral, NORMAL BREATHING PATTERN - Cardiovascular Exam Cardiovascular Exam: REGULAR RHYTHM, +S1, +S2 - GI/Abdominal Exam GI & Abdominal Exam: Soft, Normal Bowel Sounds - Rectal Exam Rectal Exam: Deferred - Extremities Exam Extremities Exam: Normal Inspection - Back Exam Back Exam: NORMAL INSPECTION - Neurological Exam Neurological Exam: Abnormal Gait, Altered - Skin Skin Exam: Normal Color Assessment and Plan - Assessment and Plan (Free Text) Assessment: 1. Pt. with multiple falls at [place], PT recommending [facility]. 2. Altered Mental Status, maybe chronic in setting of dementia. 3. Hx of Dementia- Continue present medications as per PMD. SW/ CM Planning for DC to [facility]/[place]. Patient is medically cleared for D/C, may ancticipate DC for tommorow. Will continue to monitor clinical status and follow closely
[2018-10-04] MEDS: Fluticasone Nasal 50 mcg/Spray NAS SCH (21:28)
[2018-10-05 07:13] LABS: HEMOGLOBIN 11.1 g/dL (12.0-16.0); MEAN CELL VOLUME 89.6 fl (80.0-105.0); MEAN CORPUSCULAR HEMOGLOBIN 28.8 pg (25.0-35.0); MEAN CORPUSCULAR HGB CONC 32.1 g/dl (31.0-37.0); RBC 3.86 10^6/uL (3.5-6.1); RED CELL DISTRIBUTION WIDTH 14.1 % (11.5-14.5); WHITE BLOOD COUNT 4.4 10^3/uL (4.5-11.0)
[2018-10-05 07:23] LABS: ALBUMIN 3.7 g/dL (3.0-4.8); ALT/SGPT 28 U/L (7-56); AST/SGOT 26 U/L (14-36); BLOOD UREA NITROGEN 19 mg/dL (7-21); CALCIUM 9.2 mg/dL (8.4-10.5); GFR NON-AFRICAN AMERICAN > 60
[2018-10-05] MEDS: Arformoterol 15 mcg/2 ml Inh Sol IH SCH ×2 (08:44→20:05)
[2018-10-05] MEDS: Budesonide 0.5 mg/2 ml Inhal Susp UD IH SCH ×2 (08:44→20:05)
[2018-10-05 09:12] VITALS: BP 111/67; PULSE 91; RESP 20; TEMP 97.4; O2SAT 95
[2018-10-05] MEDS: Pantoprazole 40 mg EC Tab PO SCH (09:20)
--- NOTE | 2018-10-05 10:44 | DS ---
HISTORY OF PRESENT ILLNESS: This is the third overnight for being able to go to a subacute rehab, I am hoping he head to [facility] today, was recommended by physical therapy to go to subacute rehab. She is on , we are trying to get it to [facility]. I put a word out to [facility] admissions about this, will see what happens. I put the discharge in that she can go to [facility] today. She is pleasantly confused in bed. She understands she has physical therapy and she understands she has been falling. PHYSICAL EXAMINATION: VITAL SIGNS: She has a 97.5 temperature, 73 pulse, 100/56 blood pressure, 19 respiratory rate, 97% sat on room air and she is hungry. HEART: Regular rate. LUNGS: Clear to auscultation. ABDOMEN: Soft. EXTREMITIES: No edema. MEDICATIONS: She is currently on Ativan, Brovana, , Flonase, Imodium, Lipitor, Protonix, Pulmicort, Seroquel and Singulair. LABORATORY DATA: She has a 138 sodium, potassium is 4, BUN 19, creatinine 0.8, GFR is greater than 60, sugar is 98, calcium is 9.2, total bili is 0.3, AST is 26, ALT is 28, alk phos 73, total protein 7.3. White count is 4.4, hemoglobin 11.1, hematocrit 34.6, platelets are 277. Urine was clean. My plan is to discharge her today to subacute rehab at [facility]. She was in the atrium and hopefully that will be done today where she needs physical therapy and she had more than 7 falls in the past 5-6 weeks. Daryl Degroot DO ROBBI
== END 2018-10-05 21:13 | DRG 914 ==
LOC: ED 12:19 → ERH 15:30 → 3RSO 20:21
PROVIDERS: ADMIT Family Medicine; ATTEND Family Medicine
DX: S09.90XA Unspecified injury of head, initial encounter (principal); R26.9 Unspecified abnormalities of gait and mobility; F31.9 Bipolar disorder, unspecified; F41.9 Anxiety disorder, unspecified; F03.90 Unspecified dementia, unspecified severity, without behavioral disturbance, psychotic disturbance, mood disturbance, and anxiety; M47.892 Other spondylosis, cervical region; J44.9 Chronic obstructive pulmonary disease, unspecified; K21.9 Gastro-esophageal reflux disease without esophagitis; R53.1 Weakness; R29.6 Repeated falls; W01.0XXA Fall on same level from slipping, tripping and stumbling without subsequent striking against object, initial encounter; Y92.129 Unspecified place in nursing home as the place of occurrence of the external cause; Z79.51 Long term (current) use of inhaled steroids; Z79.899 Other long term (current) drug therapy